=== PATIENT | female | born 1950 | race American Indian/Alaskan Native ===

== ENCOUNTER 2017-12-19 05:24 | Emergency (ER) | payer MEDICARE ==
--- NOTE | 2017-12-19 05:38 | Emergency Department Report ---
Chief Complaint: Nausea/Vomiting/Diarrhea Stated Complaint: NAUSEA/FEVER - HPI History of Present Illness: Ms. Steen is 67-year-old female who presents with fever mild headache nasal congestion diarrhea chills body aches. Screening orders provided. - Exam Vital Signs: Vital Signs 12/19/17 05:27 Temperature 98.3 F Pulse Rate 95 H Respiratory 18 Rate Blood Pressure 157/70 O2 Sat by Pulse 97 Oximetry MSE screening note: Focused history and physical exam performed. Due to findings the following was ordered: ED Disposition for MSE Condition: Stable
[2017-12-19] MEDS ORDERED: ZOFRAN ODT PO ONE (05:40)
--- NOTE | 2017-12-19 06:11 | Emergency Department Report ---
ED General Adult HPI - General Chief complaint: Nausea/Vomiting/Diarrhea Stated complaint: NAUSEA/FEVER Time Seen by Provider: 12/19/17 06:11 Source: patient, family, EMS Mode of arrival: Stretcher Limitations: No Limitations - History of Present Illness Initial comments: Patient is a 67-year-old female past medical history of high blood pressure who presents with headache and nausea and vomiting. Patient states headache is resolved for last 3 days her headache is an 8 out of 10 in the back of her head what makes it worse nothing makes it better is a constant pain patient states that it occurred gradually at rest. Patient denies having any neck pain. Patient has had a mild fever at home and she is also had some diarrhea. No blood in the stool. - Related Data Previous Rx's Medication Instructions Recorded Last Taken Type Acetaminophen [Acetaminophen TAB] 650 mg PO Q4H PRN #20 tablet 07/13/14 Unknown Rx Polyethylene Glycol 3350 [Miralax 17 gm PO QDAY PRN #15 powd.pack 07/13/14 Unknown Rx 3350] Butalb/Acetaminophen/Caffeine 1 each PO Q6HR #14 capsule 08/19/14 Unknown Rx [Fioricet 50-300-40 mg Capsule] Butalb/Acetamin/Caff 50-325-40 1 tab PO Q6HR PRN #15 tab 12/19/17 Unknown Rx [Fioricet] Allergies Allergy/AdvReac Type Severity Reaction Status Date / Time No Known Allergies Allergy Unverified 07/12/13 08:50 ED Review of Systems ROS: Stated complaint: NAUSEA/FEVER Other details as noted in HPI Constitutional: denies: chills, fever Eyes: denies: eye pain, eye discharge, vision change ENT: denies: ear pain, throat pain Respiratory: denies: cough, shortness of breath, wheezing Cardiovascular: denies: chest pain, palpitations Endocrine: no symptoms reported Gastrointestinal: nausea, vomiting. denies: abdominal pain, diarrhea Genitourinary: denies: urgency, dysuria, discharge Musculoskeletal: denies: back pain, joint swelling, arthralgia Skin: denies: rash, lesions Neurological: headache. denies: weakness, paresthesias Psychiatric: denies: anxiety, depression Hematological/Lymphatic: denies: easy bleeding, easy bruising ED Past Medical Hx - Past Medical History Previous Medical History?: Yes Hx Hypertension: Yes Hx Congestive Heart Failure: No Hx Diabetes: No Hx Asthma: No Hx COPD: No Additional medical history: recently d/c'ed from [place] with viral meningitis - Surgical History Past Surgical History?: No - Social History Smoking Status: Never Smoker Substance Use Type: None - Medications Home Medications: Home Medications Medication Instructions Recorded Confirmed Last Taken Type Acetaminophen [Acetaminophen TAB] 650 mg PO Q4H PRN #20 tablet 07/13/14 Unknown Rx Polyethylene Glycol 3350 [Miralax 17 gm PO QDAY PRN #15 powd.pack 07/13/14 Unknown Rx 3350] Butalb/Acetaminophen/Caffeine 1 each PO Q6HR #14 capsule 08/19/14 Unknown Rx [Fioricet 50-300-40 mg Capsule] Butalb/Acetamin/Caff 50-325-40 1 tab PO Q6HR PRN #15 tab 12/19/17 Unknown Rx [Fioricet] ED Physical Exam - General Limitations: No Limitations General appearance: alert, in no apparent distress - Head Head exam: Present: atraumatic, normocephalic - Eye Eye exam: Present: normal appearance - ENT ENT exam: Present: mucous membranes moist - Neck Neck exam: Present: normal inspection - Respiratory Respiratory exam: Present: normal lung sounds bilaterally. Absent: respiratory distress - Cardiovascular Cardiovascular Exam: Present: regular rate, normal rhythm. Absent: systolic murmur, diastolic murmur, rubs, gallop - GI/Abdominal GI/Abdominal exam: Present: soft, normal bowel sounds - Extremities Exam Extremities exam: Present: normal inspection - Back Exam Back exam: Present: normal inspection - Neurological Exam Neurological exam: Present: alert, oriented X3 - Psychiatric Psychiatric exam: Present: normal affect, normal mood - Skin Skin exam: Present: warm, dry, intact, normal color. Absent: rash ED Course Vital Signs 12/19/17 12/19/17 12/19/17 05:27 05:40 06:00 Temperature 98.3 F 100.9 F H Pulse Rate 95 H 93 H 84 Respiratory 18 17 12 Rate Blood Pressure 157/70 172/67 Blood Pressure 164/75 [Left] O2 Sat by Pulse 97 99 99 Oximetry 12/19/17 12/19/17 12/19/17 07:17 07:28 07:42 Temperature 98.8 F 98.8 F Pulse Rate 92 H Respiratory 16 Rate Blood Pressure 165/71 Blood Pressure 139/65 [Left] O2 Sat by Pulse 98 99 Oximetry 12/19/17 12/19/17 12/19/17 07:55 08:00 08:45 Temperature Pulse Rate 92 H Respiratory 17 20 17 Rate Blood Pressure 128/56 Blood Pressure [Left] O2 Sat by Pulse 96 Oximetry ED Medical Decision Making - Lab Data Result diagrams: 12/19/17 06:07 12/19/17 06:07 Lab Results 12/19/17 12/19/17 Range/Units 06:07 06:07 WBC 7.4 (4.5-11.0) K/mm3 RBC 3.50 L (3.65-5.03) M/mm3 Hgb 10.4 (10.1-14.3) gm/dl Hct 31.9 (30.3-42.9) % MCV 91 (79-97) fl MCH 30 (28-32) pg MCHC 33 (30-34) % RDW 15.3 H (13.2-15.2) % Plt Count 283 (140-440) K/mm3 Lymph % (Auto) 18.0 (13.4-35.0) % [place] % (Auto) 4.8 (0.0-7.3) % Eos % (Auto) 0.5 (0.0-4.3) % Baso % (Auto) 0.5 (0.0-1.8) % Lymph # 1.3 (1.2-5.4) K/mm3 [place] # 0.4 (0.0-0.8) K/mm3 Eos # 0.0 (0.0-0.4) K/mm3 Baso # 0.0 (0.0-0.1) K/mm3 Seg Neutrophils % 76.2 H (40.0-70.0) % Seg Neutrophils # 5.7 (1.8-7.7) K/mm3 Sodium 139 (137-145) mmol/L Potassium 4.6 (3.6-5.0) mmol/L Chloride 101.6 (98-107) mmol/L Carbon Dioxide 24 (22-30) mmol/L Anion Gap 18 mmol/L BUN 14 (7-17) mg/dL Creatinine 0.9 (0.7-1.2) mg/dL Estimated GFR > 60 ml/min BUN/Creatinine Ratio 16 % Glucose 113 H (65-100) mg/dL Calcium 9.3 (8.4-10.2) mg/dL Total Bilirubin 0.30 (0.1-1.2) mg/dL AST 10 (5-40) units/L ALT 6 L (7-56) units/L Alkaline Phosphatase 77 (35-129) units/L Total Protein 7.0 (6.3-8.2) g/dL Albumin 4.0 (3.9-5) g/dL Albumin/Globulin Ratio 1.3 % - Medical Decision Making Medical diagnosis: Tension headache Differential medical diagnosis: Migraine headache, gastroenteritis electrolyte abnormality I will give patient IV reglan, benadryl, cbc, bmp and oral tylenol. Since headache is better and patient's blood work is unremarkable I will also patient home. Discussed plan with patient patient agrees with plan. Additional verbal discharge instructions were given. Critical care attestation.: If time is entered above; I have spent that time in minutes in the direct care of this critically ill patient, excluding procedure time. ED Disposition Clinical Impression: Headache Qualifiers: Headache type: tension-type Headache chronicity pattern: acute headache Intractability: not intractable Qualified Code(s): G44.209 - Tension-type headache, unspecified, not intractable Nausea and vomiting Qualifiers: Vomiting type: unspecified Vomiting Intractability: unspecified Qualified Code( s): R11.2 - Nausea with vomiting, unspecified Disposition: DC-01 TO HOME OR SELFCARE Is pt being admited?: No Does the pt Need Aspirin: No Condition: Stable Instructions: Tension Headache (ED) Prescriptions: Butalb/Acetamin/Caff 50-325-40 [Fioricet] 1 tab PO Q6HR PRN #15 tab PRN Reason: Headache Referrals: PRANEETH REGALADO MD [Primary Care Provider] - 3-5 Days
[2017-12-19] MEDS ORDERED: REGLAN IV ONE (06:34)
[2017-12-19] MEDS ORDERED: BENADRYL IV ONE (06:34)
[2017-12-19] MEDS ORDERED: TYLENOL PO ONE (06:34)
[2017-12-19 06:57] LABS: Basophils % (Auto) 0.5 % (0.0-1.8); Eosinophils % (Auto) 0.5 % (0.0-4.3); Hematocrit 31.9 % (30.3-42.9); Hemoglobin 10.4 gm/dl (10.1-14.3); Lymphocytes # (Auto) 1.3 K/mm3 (1.2-5.4); Mean Corpuscular HGB Conc 33 % (30-34); Mean Corpuscular Hemoglobin 30 pg (28-32); Mean Corpuscular Volume 91 fl (79-97); Monocytes # (Auto) 0.4 K/mm3 (0.0-0.8); Monocytes % (Auto) 4.8 % (0.0-7.3); Platelet Count 283 K/mm3 (140-440); Red Cell Distribution Width 15.3 % (13.2-15.2)
[2017-12-19 07:15] LABS: Alanine Aminotransferase 6 units/L (7-56); BUN/Creatinine Ratio 16; Blood Urea Nitrogen 14 mg/dL (7-17); Calcium 9.3 mg/dL (8.4-10.2); Hemolysis Index 12
[2017-12-19] MEDS ORDERED: TORADOL IV ONE (08:08)
[2017-12-19 11:42] VITALS: BP 108/54
== END 2017-12-19 11:05 | disposition home or self-care (01) ==
LOC: ED 05:24
DX: G44.209 Tension-type headache, unspecified, not intractable (principal); I10 Essential (primary) hypertension
CPT/HCPCS: 36415; 80053; 85025; 96374; 96375; 99284; J1200; J1885; J2765; Q0162